=== PATIENT | female | born 1985 | race African-American/Black ===

== ENCOUNTER 2016-07-21 22:21 | Emergency (ER) | payer SELFPAY ==
[~2016-07-21] VITALS: Ht 165.1 cm; Wt 65.3 kg
[2016-07-21 22:30] VITALS: BP 104/59
[2016-07-22] MEDS ORDERED: IBUPROFEN 600 MG TAB PO ONE (01:15)
[2016-07-22] MEDS ORDERED: CYCLOBENZAPRINE HCL 10 MG TAB PO ONE (01:15)
== END 2016-07-22 01:54 | disposition home or self-care (01) ==
LOC: ER 22:25
DX: S16.1XXA Strain of muscle, fascia and tendon at neck level, initial encounter (principal); M79.1 Myalgia; R51 Headache; Z88.0 Allergy status to penicillin; V43.62XA Car passenger injured in collision with other type car in traffic accident, initial encounter; Y93.89 Activity, other specified; Y99.8 Other external cause status; Y92.89 Other specified places as the place of occurrence of the external cause
CPT/HCPCS: 72040